=== PATIENT | male | born 1990 | race Caucasian/White ===

== ENCOUNTER 2018-04-30 23:31 | Emergency (ER) | payer OTHER, SELFPAY ==
[2018-04-30 23:48] VITALS: BP 139/97; PULSE 62; RESP 18; TEMP 36.8; O2SAT 98; BMI 26.4
--- NOTE | 2018-05-08 11:39 | ED_ITS ---
HPI - Headache General Chief Complaint: Headache Stated Complaint: HEAD PRESSURE Time Seen by Provider: 05/01/18 00:13 Source: patient and family Mode of arrival: ambulatory Limitations: no limitations History of Present Illness HPI Narrative: Patient has had an ongoing headache for the last 2 days. Patient states more pressure than pain. Patient states that the headache started after his girlfriend gave him a Neti pot to use for his clogged sinuses. He states he felt a burning sensation inside of his nose and sinuses, and that he has had a headache since. He states that he also broke out in the rash today. He has had nausea but no vomiting. No fevers. No neck pain. No visual changes or other neurologic symptoms. Patient is had a vesicular type rash on the right side of his nasal bridge. MD Complaint: headache Onset (ago): day(s) Onset description: gradual Location: diffuse Severity: moderate Severity scale (1-10): 5 Quality: aching, throbbing, dull and different than previous headaches Relieving factors: nothing Exacerbating factors: none Context: occurred at rest Associated symptoms: nausea Other symptoms: other (No other symptoms.) Related Data Previous Rx's Medication Instructions Recorded acyclovir 800 mg PO Q4H #12 tab 05/01/18 Review of Systems Review of Systems All systems reviewed & are unremarkable except as noted in HPI and below Constitutional Denies chills, Denies fever(s), Reports headache(s), Denies lethargy and Denies weakness Eyes Denies change in vision, Denies eye discharge, Denies irritation and Denies loss of vision ENT Ears, Nose, Mouth, and Throat: Denies change in voice, Reports headache(s), Denies neck pain and Denies sore throat Cardiovascular Denies chest pain, Denies irregular heart rhythm, Denies lightheadedness, Denies palpitations, Denies dyspnea, Denies dyspnea on exertion and Denies orthopnea Respiratory Denies cough, Denies dyspnea, Denies dyspnea on exertion and Denies wheezing Gastrointestinal Gastrointestinal: Denies abdominal pain, Denies change in bowel habits, Denies diarrhea, Denies nausea and Denies vomiting Genitourinary Denies hematuria, Denies flank pain, Denies urinary incontinence and Denies urinary urgency Musculoskeletal Denies neck pain Integumentary/Breasts Denies pruritus, Denies erythema, Denies rash and Denies wounds Neurologic Denies confusion, Reports headache(s), Denies loss of vision and Denies weakness Psychiatric Denies anxiety, Denies confusion, Denies depression, Denies homicidal ideation and Denies suicidal ideation Endocrine Denies palpitations Hematologic/Lymphatic Denies easy bruising Allergic/Immunologic Denies wheezing PFSH Medical History Healthy adult (Acute) Surgical History No pertinent past surgical history (Acute) Social History Smoking Status: Never smoker Exam Initial Vital Signs Initial Vital Signs: Vital Signs Temperature 98.2 F 04/30/18 23:48 Pulse Rate 62 04/30/18 23:48 Respiratory Rate 18 04/30/18 23:48 Blood Pressure 139/97 H 04/30/18 23:48 Pulse Oximetry 98 04/30/18 23:48 Const General: cooperative and well developed Nutritional Appearance: well nourished Orientation: alert, awake, oriented x3 and not confused [facility] Head: normocephalic and atraumatic Ears: external ears normal and TM's normal bilaterally Nose: No nasal discharge and other (Patient has 5 vesicular lesions on the lateral aspect of the right side of his nasal bridge. No drainage. No erythema. No edema.) Face and sinus: sinuses nontender, face symmetric, no sinus tenderness and No dry mucous membranes Mouth: oral mucosae normal and moist mucous membranes Teeth and gingiva: dentition normal Throat: tonsils normal and uvula midline Eyes General: appearance normal, both eyes and all related structures Eyelids: eyelids normal Conjunctivae: conjunctivae normal Sclera: sclerae normal Pupils: PERRL EOM: EOM intact bilaterally Neck Neck: normal visual inspection, trachea midline, No lymphadenopathy, No midline deformity and No JVD Lymphatic: No lymphedema Chest Chest: normal inspection of the chest Resp Effort & Inspection: normal respiratory effort, able to speak in complete sentences, no respiratory distress and no use of accessory muscles Auscultation: clear to auscultation bilaterally, no rales, no rhonchi and no wheezes Cardio Rate: regular rate Rhythm: regular rhythm Heart Sounds: no click, no gallops, no murmurs and no rubs Pulses: normal peripheral pulses GI Inspection: non-distended Palpation: soft, no hepatosplenomegaly, No guarding, No pulsatile mass and No tender Auscultation: normal bowel sounds Back/Spine/Pelvis Back: No CVA tenderness Cervical Spine: cervical ROM normal and No pain with cervical ROM Thoracic/Lumbar Spine: thoracic and lumbar spine normal to inspection Skin General: no rashes or lesions noted, No jaundice and No petechiae Neuro General: alert, oriented x3, gait normal and no focal motor deficits Speech: speech normal Extrem General: full ROM, no clubbing, cyanosis or edema, no pedal edema and no calf tenderness Psych Appearance: well kempt Mental Status: mental status grossly normal Attitude: cooperative Thought Content: normal and suicidality Judgment: judgment good Course Course Narrative: I discussed with patient that his symptoms are not concerning at this point for a serious cause of headache. His vesicles located at the side of his nasal bridge, which does not indicate nasal ciliary branch zoster. Have given the patient a prescription for acyclovir. [facility] - Headache Medical Records Attestation: I reviewed the patient's medical records. Discharge Plan Departure Patient Disposition: Home Clinical Impression: Herpes dermatitis, Vesicular eruption, localized Discharge Date/Time: 05/01/18 00:45 Interventions: ED Discharge Assessment Last Done: 05/01/18 00:45 Instructions: DI for Shingles Prescriptions: New acyclovir 800 mg tablet 800 mg PO Q4H Qty: 12 RF: 0 Referrals: [facility] [Provider Group] ( Please follow-up as needed.)
== END 2018-05-01 00:45 | disposition home or self-care (01) ==
PROVIDERS: Emergency Provider Emergency Medicine
DX: B00.89 Other herpesviral infection (principal); R23.8 Other skin changes
CPT/HCPCS: 99282

== ENCOUNTER 2021-10-19 12:46 | Emergency (ER) | payer OTHER, MEDICAID, SELFPAY ==
[2021-10-19 13:03] VITALS: BP 152/77; PULSE 63; RESP 14; TEMP 36.6; O2SAT 98; BMI 26.4
--- NOTE | 2021-10-19 13:09 | DI.US.S_ITS ---
PROCEDURE: US SCROTUM INDICATIONS: testicular pain TECHNIQUE: Real-time scanning was performed of the scrotum and testicles, with image documentation. Color and pulse Doppler interrogation was performed of both testicles. COMPARISON: None. FINDINGS: Right: Testicle is normal in size at 5.3 x 2.2 x 2.8 cm, and homogenous in echotexture. Epididymis is normal in overall size and morphology. No hydrocele or varicoceles. Overlying scrotal skin is normal in thickness. Left: Testicle is normal in size at 5.1 x 2.4 x 2.7 cm, and homogeneous in echotexture. Epididymis is normal in overall size and morphology. No hydrocele. While there is a slight prominence vasculature, characteristic varicocele is not identified.. Overlying scrotal skin is normal in thickness. Doppler: Color and pulse Doppler demonstrate normal and symmetric arterial flow in both testicles. IMPRESSION: Unremarkable exam. No torsion at time of exam, intermittent torsion cannot be excluded. Dictated by: Vandana Narvaez M.D. on 10/19/2021 at 14:10 Approved by: Vandana Narvaez M.D. on 10/19/2021 at 14:11
[2021-10-19 14:50] LABS: Urine N gonorrhoeae NOT DETECTED
[2021-10-19 14:57] LABS: Urine Chlamydia NOT DETECTED
--- NOTE | 2021-10-19 18:11 | ED.MALEGU ---
HPI - Male Genitourinary General Chief complaint: Urogenital-Male Stated complaint: Testicular pain- sent by [facility] Time Seen by Provider: 10/19/21 17:51 Source: patient Mode of arrival: Ambulatory History of Present Illness HPI Narrative: Patient is a 31-year-old male with history of chlamydia presenting today with ongoing till regular pain her at least the last 2 months. He was diagnosed with chlamydia in July he can is girlfriend both tested positive they both took antibiotics she was tested 2 weeks ago and was negative. His symptoms at that time were painful burning pruritus with urination. Since then he has had this dull left-sided testicular it a week. He says it does not prevent him from his daily life. He is quite active doing a lot of heavy lifting. He has not noted any bulging. He has not any had any fevers or trauma to the testicular area. Urination symptoms have completely subsided. Denies any abdominal pain nausea or vomiting. He was told by his PCP are a to come get checked out in the emergency department he was in the process of switching medical insurance. Related Data Previous Rx's Medication Instructions Recorded acyclovir 800 mg tablet 800 mg PO Q4H #12 tab 05/01/18 Allergies Allergy/AdvReac Type Severity Reaction Status Date / Time Cephalosporins Allergy Verified 10/19/21 13:03 Review of Systems Review of Systems Narrative: GENERAL: Denies chills, fatigue, malaise, fever, sweats, travel HEENT: Denies sinus pain, ear pain, sore throat, difficulty swallowing, neck pain RESPIRATORY: Denies dyspnea, cough, wheezing, hemoptysis, sputum. CARDIOVASCULAR: Denies chest pain, palpitations, orthopnea, edema GASTROINTESTINAL: Denies nausea, vomiting, abdominal pain, diarrhea, constipation, melena. : See HPI MUSCULOSKELETAL: Denies weakness, joint pain, or bony pain SKIN: No rash, no erythema, no pruritus NEUROLOGIC: Denies weakness, dizziness, headache, numbness, change in speech, confusion PSYCHIATRIC: No concerning psychosocial issues. 12 point review of systems is negative except for those stated above and HPI Patient History Medical History Healthy adult Surgical History No pertinent past surgical history Social History Smoking Status: Never smoker Smoking Status: Never smoker alcohol intake frequency: holidays/special occasions only Substance Use Type: does not use Exam Initial Vital Signs Initial Vital Signs: Vital Signs Temperature 97.9 F 10/19/21 13:03 Pulse Rate 63 10/19/21 13:03 Respiratory Rate 14 10/19/21 13:03 Blood Pressure 152/77 H 10/19/21 13:03 Pulse Oximetry 98 10/19/21 13:03 GENERAL: 31-year-old male well appearing no acute distress CARDIOVASCULAR: peripheral pulses in tact, cap refill <2 sec RESPIRATORY: No respiratory distress, speaks in full sentences without difficulty ABDOMEN: Soft, nontender, no guarding or rebound : Nurse Zahra present, very minimal bulge in left testicle no significant swelling or erythema no tenderness epididymitis EXTREMITIES: Normal range of motion, no clubbing or edema. Neurovascularly intact NEUROLOGICAL: Cranial nerves II through XII grossly intact. Normal gait and speech. SKIN: Warm, dry, no petechiae, no rashes or lesions. Course Orders Ordered: ED Orders 10/19/21 13:09 US scrotum Stat 10/19/21 13:19 Chlamydia Gonorrhea PCR -URINE Stat Vital Signs Vital signs: Vital Signs - 8 hr 10/19/21 13:03 Temperature 97.9 F Pulse Rate 63 Respiratory Rate 14 Blood Pressure 152/77 H Pulse Oximetry 98 MDM - Male Genitourinary Lab Data Labs: Lab Results 10/19/21 Range/Units 13:19 Ur Chlamydia DNA (PCR) Not detected N gonorrhoeae DNA (PCR) Not detected Urine Dip Bedside Urine Glucose Negative Bedside Urine Bilirubin - Negative Bedside Urine Ketone - Negative Urine Specific [place] 1.010 Bedside Urine Occult Blood - Negative Bedside Urine pH 6.5 Bedside Urine Protein - Negative Bedside Urine Urobilinogen +/- 1mg Bedside Urine Nitrite - Negative Bedside Urine Leukocytes - Negative Esterase Imaging Data US Scrotum: Radiologist's Impression: PROCEDURE:? US SCROTUM ? INDICATIONS:? testicular pain ? TECHNIQUE:? Real-time scanning was performed of the scrotum and testicles, with image documentation.? Color and pulse Doppler interrogation was performed of both testicles.? ? COMPARISON:? None. ? FINDINGS:? ? Right:? Testicle is normal in size at 5.3 x 2.2 x 2.8 cm, and homogenous in echotexture.? Epididymis is normal in overall size and morphology.? No hydrocele or varicoceles.? Overlying scrotal skin is normal in thickness.? ? Left:? Testicle is normal in size at 5.1 x 2.4 x 2.7 cm, and homogeneous in echotexture.? Epididymis is normal in overall size and morphology.? No hydrocele.? While there is a slight prominence vasculature, characteristic varicocele is not identified..? Overlying scrotal skin is normal in thickness.? ? Doppler:? Color and pulse Doppler demonstrate normal and symmetric arterial flow in both testicles.? ? IMPRESSION:? ? Unremarkable exam. ? No torsion at time of exam, intermittent torsion cannot be excluded. ? ? Dictated by: Vandana Narvaez M.D. on 10/19/2021 at 14:10 ? ? Approved by: Vandana Narvaez M.D. on 10/19/2021 at 14:11 ? MDM Narrative Medical decision making narrative: At this time patient did not have signs or symptoms consistent with chlamydia like he did previously. His urine test is negative. Ultrasound does not show any abnormality. Exam suggest a very possible start of a mild hernia with discussed with him. He says it is not bothering him while he lifts weights it has been ongoing for over 2 months. At this time recommend follow-up with PCP Discharge Plan Departure Patient Disposition: Home Clinical Impression: Testicular pain, left Instructions: How to Perform a Testicular Self-exam Activity Restrictions/Additional Instructions: *You have been diagnosed with left testicular pain *What to do: You may be starting to have a small hernia on the left side. I would monitor and watch how much weaker actually lifting. He noticed over old her increased pain. However at this time and does not appear that have infection. Please follow-up primary provider. *Continue to take medications as directed Ibuprofen 800 mg every 8 hours if needed for [id number] pain *Follow up with your primary care provider in 2-3 days or call [phone] *Return to ER if you should have increasing pain redness painful or frequent urination, swelling or any new, worsening or concerning symptoms Prescriptions: No Action acyclovir 800 mg tablet 800 mg PO Q4H Qty: 12 0RF Rx Instructions: while awake; give 5 doses in 24 hours
[2021-10-19 18:29] VITALS: BP 136/89; PULSE 55; RESP 16; O2SAT 99
== END 2021-10-19 18:29 | disposition home or self-care (01) ==
PROVIDERS: Emergency Medicine; Emergency Provider Emergency Medicine
DX: N50.812 Left testicular pain (principal)
CPT/HCPCS: 76870; 81003; 87491; 87591; 99281; 99283